=== PATIENT | female | born 1980 | race Caucasian/White ===

== ENCOUNTER 2017-01-21 17:32 | Emergency (ER) | payer SELFPAY ==
[2017-01-21] MEDS ORDERED: diphenhydrAMINE 25 MG CAP ONE (17:58)
[2017-01-21] MEDS ORDERED: Famotidine 20 MG TAB ONE (17:58)
[2017-01-21] MEDS ORDERED: predniSONE 20 MG TAB ONE (17:58)
[2017-01-21 18:58] LABS: Bilirubin Small (Negative); Blood, Urine Trace (Negative); Glucose, Urine (Dipstick) Negative (Negative); Leukocyte Negative (Negative); Nitrite Negative (Negative); Protein, Urine (Dipstick) Trace mg/dL (Neg-Trace); Specific Gravity, Urine 1.025 (1.005-1.030); Urobilinogen 0.2 mg/dL (0.2-1.0); pH, Urine 5.5 (5.0-9.0)
[2017-01-21 18:59] LABS: Bacteria/HPF Rare-Few HPF (None Seen); Clarity Cloudy (Clear); RBC/HPF 0-3 HPF (0-3); WBC/HPF 0-3 HPF (0-3)
[2017-01-21 19:00] LABS: Pregnancy Test - Urine (BHCG) Negative (Negative); Pregu Control Background? CLEAR/WHITE (CLR/WHITE); Pregu Control Bar Appear? YES (CONTROL BAR); Specific Gravity 1.025 (1.002-1.036)
== END 2017-01-21 20:03 | disposition home or self-care (01) ==
LOC: MADERS 17:32
DX: T50.905A Adverse effect of unspecified drugs, medicaments and biological substances, initial encounter (principal); F17.210 Nicotine dependence, cigarettes, uncomplicated; Z79.899 Other long term (current) drug therapy
CPT/HCPCS: 81003; 81015; 81025; 99283; J7506